=== PATIENT | male | born 1950 | race Caucasian/White ===

== ENCOUNTER 2017-12-28 09:35 | Outpatient (CLI) | payer MEDICARE, BC ==
--- NOTE | 2017-12-28 13:59 | MRI ---
MRI LUMBAR SPINE: HISTORY: Lumbar radiculopathy, M54.16. TECHNIQUE: Multiplanar, multisequence, noncontrast-enhanced MRI of the lumbar spine is obtained. FINDINGS: T12-L1: Mild facet hypertrophy is seen. The central canal and neural foramen are patent. L1-L2: Disk desiccation is seen. There is bilateral facet and ligamentum flavum hypertrophy. This results in minimal central and lateral recess stenosis. There is moderate bilateral neural foraminal narrowing due to the facet hypertrophy. L2-L3: Disk desiccation is seen. There is a broad-based disk bulge with bilateral facet and ligamen glenda flavum hypertrophy, resulting in mild central and lateral recess stenosis. Moderate bilateral ne ural foraminal narrowing is seen. L3-L4: Disk desiccation is seen. There is a broad-based disk bulge with bilateral facet and ligamen glenda flavum hypertrophy, resulting in moderate to severe central and lateral recess stenosis, compress ing the thecal sac and lateral recesses, more pronounced on the right than on the left. There is mod erate to severe right and left sided neural foraminal narrowing due to the facet hypertrophy. L4-L5: There is disk desiccation seen. There is a broad-based disk bulge with bilateral facet and l igamentum flavum hypertrophy, resulting in severe central and lateral recess stenosis. There is mode rate to severe bilateral neural foraminal narrowing due to facet hypertrophy. Fluid is seen in the L 4-L5 facet joints. L5-S1: Disk desiccation is seen. There is mild facet hypertrophy seen. There is moderate bilateral neural foraminal narrowing seen. IMPRESSION: Multilevel disk degenerative changes with central and neural foraminal narrowing. The most significa nt levels are at L3-L4 and at L4-L5. POS: [facility]
== END 2017-12-28 09:36 | disposition home or self-care (01) ==
LOC: BICMRI 09:35
PROVIDERS: ATTEND Neurological Surgery
DX: M47.26 Other spondylosis with radiculopathy, lumbar region (principal); M99.83 Other biomechanical lesions of lumbar region
CPT/HCPCS: 72148; 82565